=== PATIENT | male | born 1985 ===

== ENCOUNTER 2022-01-27 06:12 | Day surgery (SDC) | payer OTHER ==
[~2022-01-27] VITALS: Ht 185.4 cm; Wt 104.0 kg
[~2022-01-27 06:12] MED LIST: CYCL10TA19 PO; ESZO1TAB8 PO; FLUO20TA11 PO; IV RINGERS,LACTATED 1000ML 1,000 ML IV SCH; MELO15TA23 PO; MORPHINE SULFATE 2 MG/ML INJ. IVP PRN; PROCHLORPERAZINE 10 MG/2 ML VIAL. IVP PRN; fentaNYL PF VIAL 100 MCG/2 ML VIAL IVP PRN
[2022-01-27 06:35] VITALS: BP 136/67
[2022-01-27] MEDS ORDERED: BUPIVACAINE-EPI 0.25% 30 ML VIAL KIT. ONE (06:57)
[2022-01-27] MEDS ORDERED: ONDANSETRON PF 4 MG/2 ML VIAL. ONE (07:12)
[2022-01-27] MEDS ORDERED: PROPOFOL 10 MG/ML (20ML) VIAL. IV ONE (07:12)
[2022-01-27] MEDS ORDERED: fentaNYL PF VIAL 100 MCG/2 ML VIAL ONE (07:12)
[2022-01-27] MEDS ORDERED: LIDOCAINE 2% PF 5 ML VIAL. ONE (07:12)
[2022-01-27] MEDS ORDERED: DEXAMETHASONE SOD PHOS 4 MG/ML VIAL ONE (07:12)
[2022-01-27] MEDS ORDERED: SEVOFLURANE 61 TO 120 MINUTES. IH ONE (07:12)
[2022-01-27] MEDS ORDERED: KETOROLAC 30 MG/ML VIAL. ONE (07:12)
[2022-01-27] MEDS ORDERED: MIDAZOLAM HCL/PF 2 MG/2 ML VIAL. ONE (07:13)
[2022-01-27] MEDS ORDERED: HYDROmorphone 2 MG/ML INJ. ONE ×2 (07:54→08:31)
--- NOTE | 2022-01-27 08:06 | PDOC4 ---
OPERATIVE NOTE Date: Date: January 27, 2022 Pre-Op Diagnosis: 1. 36-year-old male left knee medial meniscus tear 2. Osteoarthritis left knee Post-Op Diagnosis: 1. 36-year-old male left medial meniscus tear 2. Osteoarthritis left knee 3. Loose body left knee Procedure Performed: 1. Left knee arthroscopy with partial medial meniscectomy 2. Removal of loose body left knee 3. Chondroplasty trochlea 4. PRP injection left knee Surgeon: Don Anesthesia Type: General Blood Loss: 10 cc Specimans Obtained: None Complications: Patient tolerated the procedure well without any apparent intraoperative complications. Operative Note: See dictation FIFI QUARLES January 27, 2022 08:06
[2022-01-27] MEDS ORDERED: ONDA4TAB12 PO (08:12)
[2022-01-27] MEDS ORDERED: ASPI325T8 PO (08:12)
[2022-01-27] MEDS ORDERED: OXYC5TAB88 PO (08:12)
--- NOTE | 2022-01-27 08:14 | DISCH ---
DISCHARGE INSTRUCTIONS Condition on Discharge Condition on Discharge: Stable Activity After Discharge Activity Instructions for Disc: Resume previous activity, Activity as tolerated Bathing Instructions: Shower-keep dressing dry Lifting Instructions after Dis: No heavy lifting Exercise Instruction after Dis: Walk 10 min, 3 x per day Driving Instructions after Dis: Do not drive (While taking narcotic pain medication) Weight Bearing Status after Di: Full weight bearing Diet after Discharge Diet after Discharge: Regular Wound Incision Care Wound/Incision Care: Ice to area for comfort, Keep wound/cast CDI Contacting the after DC Call your doctor for: If your condition worsens Follow-Up Follow up with: Orthopedic clinic call to schedule [phone] FIFI QUARLES January 27, 2022 08:13
--- NOTE | 2022-01-27 08:27 | OP ---
DATE OF SURGERY: 01/27/2022 PREOPERATIVE DIAGNOSES: Medial meniscal tear with degenerative joint disease, loose bodies, left knee. PROCEDURES: 1. Left knee arthroscopy with partial medial meniscectomy, chondroplasty, femoral sulcus, removal, multiple loose bodies. 2. Injection, PRP. SURGEON: Vito Ohcoa Jr, DO SKIP MINER BLASTING: Luisito Upton. ANESTHESIA: General. COMPLICATIONS: None. ESTIMATED BLOOD LOSS: 20 mL DESCRIPTION OF PROCEDURE: The patient was taken to the operative suite, given a general anesthetic. Left lower extremity was placed in a knee michel, prepped and draped in a sterile fashion. Inferomedial and inferolateral portals were established. Knee was insufflated with saline. Visualization of the patellofemoral joint noted this to be intact along the area of the patella; however, the femoral sulcus had deep grade 3 changes, which were unstable. There were also multiple chondral loose bodies throughout the knee, which were removed. This was removed with the shaver and then following this, a chondroplasty was undertaken along the area of the femoral sulcus. This debrided back down to stable tissue. After this was done, there was noted to be no complete exposure of bone along this area, but again deep grade 3 at this point. The scope was then taken into the medial and lateral gutters. No loose bodies were noted in this area; however, there was a loose body noted within the medial compartment. There was noted to be previous signs of meniscectomy and the tear along the area of the posterior horn of the meniscus was noted. This was unstable. A shaver was used to debride this back to stable tissue. The remnant was the outer one-half. The chondral surfaces were noted to be completely intact on both the femoral and tibial sides of the joint throughout the arc of motion. ACL and the PCL were then visualized and noted to be very stable and secured at this point. The lateral compartment was entered. There was a lot of softening on the tibial side of the joint, but no lavell tears or fissures were noted. No lesions were noted on the femoral side and the meniscus was completely intact and stable with probing. One loose body was removed from that area as well, which was a small chondral fragment. This was then thoroughly irrigated and suctioned dry. All instruments were removed after this was suctioned dry. The wounds were then reapproximated. Local was placed within the portal sites and then the PRP, which had been prepared on the back table with the center fusion double spin was then mixed on the back table and that was injected into the knee. This was noted to be stable. Sterile dressing was then applied. The patient was then taken from the operative bed to the postoperative bed, taken to the PACU in stable condition. LOWELL DR: Maxi TID: [id number]
[2022-01-27] MEDS ORDERED: oxyCODONE IR 5 MG TABLET PO ONE (08:30)
[2022-01-27] MEDS ORDERED: oxyCODONE IR 5 MG TABLET ONE (08:30)
[2022-01-27] MEDS: HYDROmorphone 2 MG/ML INJ. IVP PRN ×3 (08:35→08:55)
[2022-01-27 08:36] VITALS: BP 109/70
== END 2022-01-27 09:05 | disposition home or self-care (01) ==
LOC: SURG 06:12
PROVIDERS: ATTEND Orthopaedic Surgery
DX: S83.242A Other tear of medial meniscus, current injury, left knee, initial encounter (principal); M17.12 Unilateral primary osteoarthritis, left knee; G47.30 Sleep apnea, unspecified; F32.9 Major depressive disorder, single episode, unspecified; Z79.899 Other long term (current) drug therapy; Z98.890 Other specified postprocedural states; X58.XXXA Exposure to other specified factors, initial encounter; Y93.89 Activity, other specified; Y92.89 Other specified places as the place of occurrence of the external cause; Y99.8 Other external cause status
CPT/HCPCS: 0232T; 29881; A4930; J0690; J1100; J1170; J1885; J2250; J2405; J2704; J3010